=== PATIENT | female | born 1945 | race Caucasian/White ===

== ENCOUNTER 2017-09-03 12:16 | Observation (INO) | payer OTHER ==
[~2017-09-03] VITALS: Ht 152.4 cm; Wt 74.4 kg
[~2017-09-03 12:16] MED LIST: ASPIR 8181 MG PO; ATORVASTATIN CA20 MG PO; BENZONATATE100 MG PO; CLOPIDOGREL75 MG PO; DEXILANT60 MG PO; GABAPENTIN100 MG PO; HYDRALAZINE HCL10 MG PO; OMEPRAZOLE20 MG PO; OMEPRAZOLE40 MG PO; OXYBUTYNIN CHLOR5 M1 PO; VENTOLIN HFA18 GM INH
--- NOTE | 2017-09-03 14:18 | Diagnostic Imaging Report ---
EXAMINATION: CT of the lumbar spine HISTORY:Status post fall 2 days ago with back pain, difficulty walking, possible L1 fracture COMPARISON:None available TECHNIQUE: Multidetector helical axial images were obtained without contrast from L1 to S1. The images were reconstructed using bone and soft tissue algorithms and were viewed in axial, sagittal, and coronal planes. FINDINGS: Alignment:Normal lumbar lordosis. Prominent S-shaped scoliosis with dominant levoscoliosis centered at L3-L4, with right-sided compensatory curve proximal and distal to this apex. Minimal retrolistheses at L2 opacity at L3-L4, left lateral spondylolisthesis at L2-L3 and L4-L5. Vertebral bodies:Normal height and density. Chronic endplate degenerative changes mainly on the right side at L3-L4 and on the left at L2-L3, likely related to scoliosis. Paraspinal soft tissues:Diffuse calcification of the bilateral adrenal glands. Moderate atrophy of the paraspinal muscles in the lumbosacral region. Dystrophic calcification in the left posterior paraspinal muscles at L4-L5. Intervertebral disks: T12-L1: Mild disc bulge and vacuum phenomena. No stenoses. L1-L2: Mild asymmetrical left disc osteophyte. No canal or foraminal stenoses. L2-L3: Mild asymmetric to the left disc osteophyte, vacuum phenomena, bilateral facet arthropathy. Mild canal and foraminal stenoses.. L3-L4: Asymmetric to the right disc osteophyte and prominent facet arthroses. Mild spinal canal stenosis. Severe right and moderate left foraminal stenosis. L4-L5: Disc osteophyte complex formation, vacuum phenomena, bilateral osteonecrosis. Mild spinal canal and moderate right foraminal stenoses.. L5-S1: Asymmetric to the left disc osteophyte and documented, bilateral facet arthrosis. Moderate right and severe left foraminal stenosis.. Incidental findings: Irregularity of the posterior margin of the bilateral iliac bones may be related to donor site for bone grafting IMPRESSION: 1. No acute lumbar spine fractures or dislocations. 2. Chronic multilevel degenerative changes with canal and foraminal stenosis as detailed above. 3. Chronic S-shaped scoliosis and spondylolisthesis as described. 4. Incidentally noted calcified adrenal glands. Note is made that acute posttraumatic thecal sac/cauda equina, ligamentous or vascular injury cannot adequately be assessed with CT. Signed by: Dr. Madeleine Rincon M.D. on 09/03/2017 2:14 PM
[2017-09-03] MEDS ORDERED: DIAZEPAM 2 MG TAB PO ONE (15:00)
[2017-09-03] MEDS ORDERED: KETOROLAC TROMETHAMINE 60 MG/2 ML VIAL IM ONE (15:00)
[2017-09-03 19:24] LABS: ANION GAP 10.5 mmol/L (8-16); BLOOD UREA NITROGEN 21 mg/dL (7-26); BUN/CREATININE RATIO 36 (6-25); CALCIUM 9.6 mg/dL (8.4-10.2); CARBON DIOXIDE 29 mmol/L (22-29); CHLORIDE 102 mmol/L (98-107); CREATININE, SERUM 0.58 mg/dL (0.57-1.11); EST GLOMERULAR FILTRATION RATE > 60 ML/MIN (60-); GLUCOSE 123 mg/dL (74-118); POTASSIUM 3.5 mmol/L (3.5-5.1); SODIUM 138 mmol/L (136-145)
[2017-09-03] MEDS ORDERED: SODIUM CHLORIDE FLUSH 10 ML SYR INJ PRN (19:45)
[2017-09-03] MEDS ORDERED: ONDANSETRON HCL 4 MG ORAL DISINTEGRATING TAB PO PRN (19:45)
[2017-09-03 20:08] LABS: BASOPHILS % 0.2 % (0.0-1.0); EOSINOPHILS # (AUTO) 0.2 (0.0-0.4); EOSINOPHILS % 2.7 % (0.0-6.0); HEMATOCRIT 33.9 % (34.2-44.1); HEMOGLOBIN 11.3 g/dL (12.0-16.0); LYMPHOCYTES # (AUTO) 1.7 (1.0-3.2); MEAN CORPUSCULAR HGB CONC 33.3 g/dL (31-35); MEAN CORPUSCULAR VOLUME 92.9 fL (81-99); MONOCYTES # (AUTO) 0.6 (0.2-0.8); MONOCYTES % 6.9 % (4.4-11.3); NEUTROPHILS # (AUTO) 5.7 (2.1-6.9); NEUTROPHILS % 68.8 % (38.7-80.0); PLATELET COUNT 208 x10e3/uL (140-360); RED BLOOD COUNT 3.65 x10e6/uL (3.6-5.1); RED CELL DISTRIBUTION WIDTH 13.5 % (11.7-14.4)
--- OUTSIDE RECORDS SUMMARY | 2017-09-03 20:14 | XMS REPORT ---
Author Author [facility] Address Unknown Phone Unavailable Care Team Providers Care Support Director Name Role Phone HOMAR DALEY Unavailable Unavailable Problems This patient has no known problems. Allergies, Adverse Reactions, Alerts This patient has no known allergies or adverse reactions. Medications This patient has no known medications. Results Test Description Test Time Test Comments Text Results Atomic Results Result Comments CT LUMBAR SPINE WO [place] [address] Patient Name: TRENA VILLAVICENCIO MR #: [id number] : 1945 Age/Sex: 71/F Req #: [id number] Adm Physician: Ordered by: HOMAR DALEY MD Report #: [id number] Location: ER Room/Bed: Procedure: [id number] CT/CT LUMBAR SPINE WO Exam Date: 09/03/17 Exam Time: 1320 REPORT STATUS: Signed EXAMINATION: CT of the lumbar spine HISTORY:Status post fall 2 days ago with back pain, difficulty walking, possible L1 fracture COMPARISON:None available TECHNIQUE: Multidetector helical axial images were obtained without contrast from L1 to S1. The images were reconstructed using bone and soft tissue algorithms and were viewed in axial, sagittal, and coronal planes. FINDINGS : Alignment:Normal lumbar lordosis. Prominent S-shaped scoliosis with dominant levoscoliosis centered at L3-L4, with right-sided compensatory curve proximal and distal to this apex. Minimal retrolistheses at L2 opacity at L3- L4, left lateral spondylolisthesis at L2-L3 and L4-L5. Vertebral bodies :Normal height and density. Chronic endplate degenerative changes mainly on the right side at L3-L4 and on the left at L2-L3, likely related to scoliosis. Paraspinal soft tissues:Diffuse calcification of the bilateral adrenal glands. Moderate atrophy of the paraspinal muscles in the lumbosacral region. Dystrophic calcification in the left posterior paraspinal muscles at L4-L5. Intervertebral disks: T12-L1: Mild disc bulge and vacuum phenomena. No stenoses. L1-L2: Mild asymmetrical left disc osteophyte. No canal or foraminal stenoses. L2-L3: Mild asymmetric to the left disc osteophyte, vacuum phenomena, bilateral facet arthropathy. Mild canal and foraminal stenoses.. L3-L4: Asymmetric to the right disc osteophyte and prominent facet arthroses. Mild spinal canal stenosis. Severe right and moderate left foraminal stenosis. L4-L5: Disc osteophyte complex formation, vacuum phenomena, bilateral osteonecrosis. Mild spinal canal and moderate right foraminal stenoses.. L5-S1: Asymmetric to the left disc osteophyte and documented, bilateral facet arthrosis. Moderate right and severe left foraminal stenosis.. Incidental findings: Irregularity of the posterior margin of the bilateral iliac bones may be related to donor site for bone grafting IMPRESSION: 1. No acute lumbar spine fractures or dislocations. 2. Chronic multilevel degenerative changes with canal and foraminal stenosis as detailed above. 3. Chronic S- shaped scoliosis and spondylolisthesis as described. 4. Incidentally noted calcified adrenal glands. Note is made that acute posttraumatic thecal sac/cauda equina, ligamentous or vascular injury cannot adequately be assessed with CT. Signed by: Dr. Odilia Rincon M.D. on 09/03/2017 2:14 PM Dictated By: ODILIA RINCON MD 13 COPY TO: HOMAR DALEY MD
[2017-09-03] MEDS: HYDRALAZINE HCL 10 MG TAB PO SCH (21:00)
[2017-09-03 21:04] VITALS: BP 145/68
[2017-09-03 21:31] VITALS: BP 145/68
[2017-09-03] MEDS: MORPHINE SULFATE 2 MG/ML SYR IV PRN (21:48)
[2017-09-03] MEDS ORDERED: ALBUTEROL SULFATE HFA 8GM INHALATION AEROSOL INH SCH (22:00)
[2017-09-03] MEDS ORDERED: ACETAMINOPHEN 325 MG TAB PO PRN (22:00)
[2017-09-03] MEDS: ATORVASTATIN 20 MG TAB PO SCH (22:26)
[2017-09-03] MEDS: GABAPENTIN 100 MG CAP PO SCH (22:26)
[2017-09-04] VITALS (8 sets, daily range): BP systolic 96–143; BP diastolic 55–64
[2017-09-04] MEDS: HYDRALAZINE HCL 10 MG TAB PO SCH ×3 (08:36→21:22)
[2017-09-04] MEDS: CLOPIDOGREL BISULFATE 75 MG TAB PO SCH (08:36)
[2017-09-04] MEDS: GABAPENTIN 100 MG CAP PO SCH ×3 (08:36→21:22)
[2017-09-04] MEDS: PANTOPRAZOLE SOD 40 MG TABEC PO SCH (08:36)
[2017-09-04] MEDS: ASPIRIN 81 MG CHEW TAB PO SCH (08:36)
[2017-09-04] MEDS: OXYBUTYNIN CHLORIDE XL 5 MG TAB PO SCH (08:36)
[2017-09-04] MEDS: MORPHINE SULFATE 2 MG/ML SYR IV PRN ×2 (08:37→14:47)
[2017-09-04] MEDS ORDERED: PANTOPRAZOLE SOD 40 MG TABEC PO SCH (09:00)
[2017-09-04] MEDS ORDERED: TRAMADOL/APAP 37.5MG-325MG TAB PO PRN (11:00)
[2017-09-04] MEDS: MELOXICAM 7.5 MG TAB PO SCH ×2 (11:18→16:16)
[2017-09-04] MEDS: LIDOCAINE 5% PATCH TP SCH (11:18)
[2017-09-04] MEDS ORDERED: PREDNISONE 20 MG TAB PO ONE (12:45)
[2017-09-04] MEDS ORDERED: ATORVASTATIN 20 MG TAB PO SCH (21:00)
[2017-09-04] MEDS: ATORVASTATIN 20 MG TAB PO SCH (21:22)
[2017-09-05] VITALS: BP 136/63
--- NOTE | 2017-09-05 00:15 | Discharge Summary ---
PCP: Dr. Kevin Ye FINAL DIAGNOSES 1. Lower back intractable pain, much improved. 2. Ambulatory dysfunction, much better. A 71-year-old female, apparently fell and hit her lower back area. Fall was accidental. Patient was having some pain and difficulty movement and acute lower back strain. Patient did receive some pain medications. She is doing much better. Discussed with the patient on treatment progress. She will take Mobic 7.5 mg twice a day with meals, Lidoderm patch to the lower back area and Ultracet as needed for pain. Patient to follow up with Dr. Kevin Ye tomorrow for home health recommendation. Patient is stable, discharged home. Resume home medication. No obvious acute injury. Muscular strain reproducible with movement and palpation to the lower back and upper back scapular area. Job#: [id number] CQ
[2017-09-05] MEDS: MORPHINE SULFATE 2 MG/ML SYR IV PRN ×2 (02:09→10:04)
[2017-09-05 04:16] VITALS: BP 100/62
[2017-09-05 08:09] VITALS: BP 155/67
[2017-09-05] MEDS ORDERED: TRIAMCINOLONE ACET 40 MG/ML VIAL IM ONE (09:15)
[2017-09-05] MEDS: GABAPENTIN 100 MG CAP PO SCH ×2 (10:03→15:50)
[2017-09-05] MEDS: CLOPIDOGREL BISULFATE 75 MG TAB PO SCH (10:03)
[2017-09-05] MEDS: ASPIRIN 81 MG CHEW TAB PO SCH (10:04)
[2017-09-05] MEDS: MELOXICAM 7.5 MG TAB PO SCH ×2 (10:04→15:51)
[2017-09-05] MEDS: OXYBUTYNIN CHLORIDE XL 5 MG TAB PO SCH (10:04)
[2017-09-05] MEDS: HYDRALAZINE HCL 10 MG TAB PO SCH ×2 (10:04→15:00)
[2017-09-05] MEDS: LIDOCAINE 5% PATCH TP SCH (10:04)
[2017-09-05] MEDS: PANTOPRAZOLE SOD 40 MG TABEC PO SCH (10:04)
[2017-09-05 12:17] VITALS: BP 143/63
[2017-09-05 12:40] VITALS: BP 143/63
[2017-09-05] MEDS ORDERED: ULTRACET TABLE1 EACH PO (14:43)
== END 2017-09-05 16:30 | disposition home or self-care (01) ==
LOC: ER 12:16 → ERHOLD 19:36 → MED/SURG 20:18
PROVIDERS: ADMIT Internal Medicine; ATTEND Internal Medicine
DX: S39.012A Strain of muscle, fascia and tendon of lower back, initial encounter (principal); W01.0XXA Fall on same level from slipping, tripping and stumbling without subsequent striking against object, initial encounter; Y93.89 Activity, other specified; Z88.0 Allergy status to penicillin; Z91.048 Other nonmedicinal substance allergy status
CPT/HCPCS: 36415; 72131; 80048; 85025; 97161; 97530; 99284; G0378 ×3; J1885; J2270 ×3; J3301

== ENCOUNTER → 2019-01-03 | Outpatient (CLI) | payer MEDICARE ==
[~2019-01-03] MED LIST changes: +REGADENOSON 0.4 MG/5 ML SYR IV ONE; +ULTRACET TABLE1 EACH PO
--- NOTE | 2019-01-04 10:58 | Myoview Stress Test ---
DATE OF STUDY: 01/03/2019 09:23:00 Stress Test - Treadmill ONLY PROCEDURE PERFORMED: Lexiscan nuclear stress test. INDICATION: Chest pain. TECHNIQUE: The patient was given 11 mCi of Myoview. Resting images were obtained in the horizontal long axis, vertical long axis, and short axis. The patient was then hooked up to the EKG machine and given Lexiscan injection over 15 seconds. During Lexiscan infusion, the patient had no chest pain and no EKG changes. Stress images were obtained 30 minutes after completion of Lexiscan infusion. Stress images were obtained using 33 mCi of Myoview. Stress images were obtained in the horizontal long axis, vertical long axis, and short axis. RESULTS: 1. The resting EKG demonstrated normal sinus rhythm with nonspecific ST and T-wave changes. 2. There were no symptoms during Lexiscan infusion and no EKG changes. 3. The patient had normal perfusion to all segments of the myocardium in both stress and rest. 4. The patient has normal left ventricular size and function with an ejection fraction of 69%. CONCLUSION: Normal Lexiscan nuclear stress test with no evidence of ischemia. Young Wyman MD [facility] /[id number] cc: Young Wyman MD
== END ==
LOC: NM 09:10
PROVIDERS: ATTEND Internal Medicine Cardiovascular Disease
DX: R07.2 Precordial pain (principal)
CPT/HCPCS: 78452; 93017; A9502; J2785

== ENCOUNTER 2019-02-17 18:03 | Emergency (ER) | payer MEDICARE ==
[~2019-02-17] VITALS: Ht 152.4 cm; Wt 74.4 kg
[~2019-02-17 18:03] MED LIST changes: -REGADENOSON 0.4 MG/5 ML SYR IV ONE
[2019-02-17] MEDS ORDERED: TETANUS/DIPHTHERIA TOX ADULT 0.5 ML SYR IM ONE (18:15)
--- NOTE | 2019-02-17 18:49 | Diagnostic Imaging Report ---
RIGHT HAND X-RAY - 3 VIEWS HISTORY: ^r/o fx ^[id number] ^[id number] COMPARISON: None available. FINDINGS: Bones: No acute displaced fracture. Chronic cortical disruption of the triquetrium, likely due to chronic degenerative change. Diffuse bone demineralization. Joints: Moderate degenerative changes throughout the right hand. Soft tissues: The soft tissues appear unremarkable. IMPRESSION: No acute radiographic abnormality. Signed by: Dr. Anat Dixon M.D. on 02/17/2019 6:45 PM
--- NOTE | 2019-02-17 19:01 | Diagnostic Imaging Report ---
History:Fall, head and neck pain Comparison studies:CT head . MRI brain 10/14/2016 Technique: Axial images were obtained from the skull base to the vertex. Coronal and sagittal images reconstructed from the axial data. Intravenous contrast: None Dose modulation, iterative reconstruction, and/or weight based adjustment of the mA/kV was utilized to reduce the radiation dose to as low as reasonably achievable. Findings: Scalp/skull: No acute abnormalities. Posterior occipital wires at the craniocervical junction. Extra-axial spaces: No masses. No fluid collections. Brain sulci: Mildly prominent. Ventricles: Mild compensatory dilatation. No hydrocephalus. Parenchyma: Scattered hypodensities in the supratentorial white matter are small vessel ischemic changes. 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 No masses, hemorrhage, acute or chronic cortical vascular insults. Sellar/suprasellar region: No abnormalities. Craniocervical junction: Patent foramen magnum. No Chiari one malformation. Incidental findings: Atherosclerotic calcifications in the carotid siphons . Impression: No acute abnormalities. Chronic findings: 1. Mild generalized volume loss. 2. Moderate supratentorial white matter small vessel ischemic changes. Signed by: DR Ignacio Granger M.D. on 02/17/2019 6:57 PM
--- NOTE | 2019-02-17 19:02 | NUR ---
3 stitches placed by ish clancy np
--- NOTE | 2019-02-17 19:09 | Diagnostic Imaging Report ---
History: Fall, head and neck pain Comparison studies: None Technique: Axial images were obtained through the cervical region.. Coronal and sagittal images reconstructed from the axial data.. Intravenous contrast: None Dose modulation, iterative reconstruction, and/or weight based adjustment of the mA/kV was utilized to reduce the radiation dose to as low as reasonably achievable. Findings: Fractures: None. Soft tissues: No gross abnormalities. Atlantoaxial articulation: Intact. Alignment: Reversal of the normal lordosis. No scoliosis. Cervicomedullary junction: Posterior fusion of the craniocervical junction. The foramen magnum is patent. Anterior fusion with plate and screws at C3-4 without complication. Posterior decompression laminectomy changes from C3 through C6. Vertebrae: No infection or neoplasm. Degenerative changes: Fused C3-C4 intervertebral space. Decreased intervertebral space from C4 through C7. Degenerative foraminal narrowing, moderate bilateral at C3-4, severe bilateral at C4-5, moderate right and severe left at C5-6, moderate bilateral at C6-7 and mild bilateral at C7-T1. Prominent inferiorly projecting osteophytes at the mid cervical spine. Moderate degenerative canal narrowing at C3-4. Degenerative changes of the bilateral TMJs more prominent on the left. IMPRESSION: 1. No acute cervical spine abnormalities. Degenerative and surgical changes as described above. 2. Cannot exclude ligament, spinal cord and or vascular abnormalities on the basis of this examination. Signed by: DR Ignacio Granger M.D. on 02/17/2019 7:06 PM
== END 2019-02-17 19:50 | disposition home or self-care (01) ==
LOC: ER 18:03
DX: S60.221A Contusion of right hand, initial encounter (principal); S61.214A Laceration without foreign body of right ring finger without damage to nail, initial encounter; S60.041A Contusion of right ring finger without damage to nail, initial encounter; W49.04XA Ring or other jewelry causing external constriction, initial encounter; I10 Essential (primary) hypertension; E78.5 Hyperlipidemia, unspecified; K21.9 Gastro-esophageal reflux disease without esophagitis
CPT/HCPCS: 70450; 72125; 90471; 90714; 99284

== ENCOUNTER 2020-09-29 11:49 | Emergency (ER) | payer MEDICARE ==
[~2020-09-29] VITALS: Ht 152.4 cm; Wt 74.4 kg
[2020-09-29 14:29] LABS: BASOPHILS % 0.3 % (0.0-1.0); EOSINOPHILS # (AUTO) 0.1 (0.0-0.4); EOSINOPHILS % 1.6 % (0.0-6.0); HEMATOCRIT 37.3 % (34.2-44.1); HEMOGLOBIN 11.9 g/dL (12.0-16.0); LYMPHOCYTES # (AUTO) 1.4 (1.0-3.2); LYMPHOCYTES % 15.3 % (18.0-39.1); MEAN CORPUSCULAR HEMOGLOBIN 29.8 pg (28-32); MEAN CORPUSCULAR HGB CONC 31.9 g/dL (31-35); MEAN CORPUSCULAR VOLUME 93.3 fL (81-99); MONOCYTES % 10.9 % (4.4-11.3); NEUTROPHILS # (AUTO) 6.5 (2.1-6.9); NEUTROPHILS % 71.6 % (38.7-80.0); PLATELET COUNT 254 x10e3/uL (140-360); RED CELL DISTRIBUTION WIDTH 12.8 % (11.7-14.4)
[2020-09-29 14:36] LABS: CLARITY,URINE CLEAR (CLEAR); COLOR,URINE YELLOW (YELLOW); KETONES,URINE TRACE (NEGATIVE); LEUKOCYTE ESTERASE ,URINE NEGATIVE (NEGATIVE); NITRITE,URINE NEGATIVE (NEGATIVE); PROTEIN,URINE DIPSTICK NEGATIVE (NEGATIVE); URINE UROBILINOGEN 0.2 mg/dL (0.2 - 1)
[2020-09-29 14:41] LABS: INR 0.84; PROTHROMBIN TIME 12.1 seconds (11.9-14.5)
[2020-09-29 14:42] LABS: PARTIAL THROMBOPLASTIN TIME 25.8 seconds (23.8-35.5)
[2020-09-29 14:49] LABS: ALANINE AMINOTRANSFERASE 17 IU/L (0-55); ALBUMIN 3.4 g/dL (3.5-5.0); ALKALINE PHOSPHATASE 108 IU/L (40-150); ANION GAP 13.9 mmol/L (8-16); BLOOD UREA NITROGEN 18 mg/dL (7-26); BUN/CREATININE RATIO 27 (6-25); CALCIUM 9.8 mg/dL (8.4-10.2); CARBON DIOXIDE 31 mmol/L (22-29); CHLORIDE 99 mmol/L (98-107); CREATINE KINASE 37 IU/L (29-168); CREATININE, SERUM 0.66 mg/dL (0.57-1.11); EST GLOMERULAR FILTRATION RATE > 60 ML/MIN (60-); GLUCOSE 91 mg/dL (74-118); POTASSIUM 3.9 mmol/L (3.5-5.1); SODIUM 140 mmol/L (136-145)
[2020-09-29 14:51] LABS: BACTERIA,URINE RARE /HPF; EPITHELIAL CELLS,URINE FEW /LPF; RBC,URINE 0-5 /HPF (0-5)
[2020-09-29 17:54] VITALS: BP 162/69
== END 2020-09-29 18:00 | disposition home or self-care (01) ==
LOC: ER 13:07
DX: L03.116 Cellulitis of left lower limb (principal); L03.115 Cellulitis of right lower limb; W18.11XA Fall from or off toilet without subsequent striking against object, initial encounter; Y92.002 Bathroom of unspecified non-institutional (private) residence as the place of occurrence of the external cause; I10 Essential (primary) hypertension; E78.5 Hyperlipidemia, unspecified; K21.9 Gastro-esophageal reflux disease without esophagitis; G62.9 Polyneuropathy, unspecified; Z20.822 Contact with and (suspected) exposure to COVID-19
CPT/HCPCS: 36415; 51700; 70450; 71045; 72125; 72170; 73562; 73590; 73610; 80053; 81001; 82550; 82553; 83605; 83735; 83880; 84484; 85025; 85610; 85730; 87040; 87086; 93005; 93970; 99284; U0002

== ENCOUNTER 2020-10-03 17:29 | Inpatient (IN) | payer MEDICARE ==
[~2020-10-03] VITALS: Ht 152.4 cm; Wt 89.4 kg
[2020-10-03] MEDS ORDERED: TRAMADOL HCL 50 MG TAB PO ONE (18:00)
[2020-10-03] MEDS ORDERED: TRAMADOL HCL 50 MG TAB ONE (18:10)
[2020-10-03 20:07] LABS: BASOPHILS % 0.2 % (0.0-1.0); EOSINOPHILS # (AUTO) 0.1 (0.0-0.4); EOSINOPHILS % 1.1 % (0.0-6.0); HEMATOCRIT 35.7 % (34.2-44.1); HEMOGLOBIN 11.3 g/dL (12.0-16.0); LYMPHOCYTES # (AUTO) 1.2 (1.0-3.2); LYMPHOCYTES % 11.6 % (18.0-39.1); MEAN CORPUSCULAR HEMOGLOBIN 29.6 pg (28-32); MEAN CORPUSCULAR HGB CONC 31.7 g/dL (31-35); MEAN CORPUSCULAR VOLUME 93.5 fL (81-99); MONOCYTES # (AUTO) 1.1 (0.2-0.8); MONOCYTES % 10.3 % (4.4-11.3); NEUTROPHILS # (AUTO) 7.9 (2.1-6.9); NEUTROPHILS % 76.4 % (38.7-80.0); PLATELET COUNT 267 x10e3/uL (140-360); RED BLOOD COUNT 3.82 x10e6/uL (3.6-5.1); RED CELL DISTRIBUTION WIDTH 13.1 % (11.7-14.4)
[2020-10-03 20:25] LABS: ANION GAP 13.8 mmol/L (8-16); BLOOD UREA NITROGEN 31 mg/dL (7-26); BUN/CREATININE RATIO 42 (6-25); CALCIUM 9.6 mg/dL (8.4-10.2); CARBON DIOXIDE 29 mmol/L (22-29); CHLORIDE 99 mmol/L (98-107); CREATININE, SERUM 0.74 mg/dL (0.57-1.11); EST GLOMERULAR FILTRATION RATE > 60 ML/MIN (60-); GLUCOSE 91 mg/dL (74-118); POTASSIUM 3.8 mmol/L (3.5-5.1); SODIUM 138 mmol/L (136-145)
[2020-10-03 20:44] LABS: CREATINE KINASE MB 2.5 ng/mL (0-5.0)
[2020-10-03] MEDS: ONDANSETRON HCL INJ 2MG/ML 2ML 2 MG/ML VIAL IV PRN (22:05)
[2020-10-03] MEDS: MORPHINE SULFATE INJ 4 MG/ML INJ 1ML IV PRN (22:05)
[2020-10-04] MEDS: MORPHINE SULFATE INJ 4 MG/ML INJ 1ML IV PRN ×5 (03:17→22:10)
[2020-10-04] MEDS: ONDANSETRON HCL INJ 2MG/ML 2ML 2 MG/ML VIAL IV PRN ×4 (03:18→22:10)
[2020-10-04 05:34] LABS: BASOPHILS % 0.3 % (0.0-1.0); EOSINOPHILS # (AUTO) 0.2 (0.0-0.4); EOSINOPHILS % 1.9 % (0.0-6.0); HEMATOCRIT 36.2 % (34.2-44.1); HEMOGLOBIN 11.4 g/dL (12.0-16.0); LYMPHOCYTES % 12.9 % (18.0-39.1); MEAN CORPUSCULAR HEMOGLOBIN 29.6 pg (28-32); MEAN CORPUSCULAR HGB CONC 31.5 g/dL (31-35); MONOCYTES % 12.1 % (4.4-11.3); NEUTROPHILS # (AUTO) 5.8 (2.1-6.9); NEUTROPHILS % 72.2 % (38.7-80.0); PLATELET COUNT 263 x10e3/uL (140-360); RED BLOOD COUNT 3.85 x10e6/uL (3.6-5.1); RED CELL DISTRIBUTION WIDTH 13.1 % (11.7-14.4)
[2020-10-04 05:59] LABS: ANION GAP 14.8 mmol/L (8-16); BLOOD UREA NITROGEN 26 mg/dL (7-26); BUN/CREATININE RATIO 39 (6-25); CALCIUM 9.7 mg/dL (8.4-10.2); CARBON DIOXIDE 30 mmol/L (22-29); CHLORIDE 98 mmol/L (98-107); CREATININE, SERUM 0.67 mg/dL (0.57-1.11); EST GLOMERULAR FILTRATION RATE > 60 ML/MIN (60-); GLUCOSE 82 mg/dL (74-118); POTASSIUM 3.8 mmol/L (3.5-5.1); SODIUM 139 mmol/L (136-145)
[2020-10-04 07:48] VITALS: BP 137/45
[2020-10-04 08:50] VITALS: BP 137/45
[2020-10-04] MEDS ORDERED: ALBUTEROL SULFATE HFA 8GM INHALATION AEROSOL INH PRN (10:45)
[2020-10-04 11:45] VITALS: BP 126/59
[2020-10-04] MEDS: PANTOPRAZOLE SOD 40 MG TABEC PO SCH (13:53)
[2020-10-04] MEDS: SENNA-S TABLET PO SCH ×2 (13:53→16:52)
[2020-10-04 15:55] VITALS: BP 135/54
[2020-10-04] MEDS: GABAPENTIN 100 MG CAP PO SCH ×2 (16:51→20:53)
[2020-10-04] MEDS: HYDRALAZINE HCL 10 MG TAB PO SCH ×2 (16:51→20:52)
[2020-10-04] MEDS: ENOXAPARIN SOD INJ 40 MG/0.4 ML SYR SC SCH (16:53)
[2020-10-04 20:45] VITALS: BP 130/68
[2020-10-04] MEDS: ATORVASTATIN 40 MG TAB PO SCH (20:52)
[2020-10-05] VITALS (9 sets, daily range): BP systolic 108–130; BP diastolic 62–80
[2020-10-05] MEDS: HYDRALAZINE HCL 10 MG TAB PO SCH (09:08)
[2020-10-05] MEDS: PANTOPRAZOLE SOD 40 MG TABEC PO SCH (09:08)
[2020-10-05] MEDS: ASPIRIN 81 MG CHEW TAB PO SCH (09:09)
[2020-10-05] MEDS: GABAPENTIN 100 MG CAP PO SCH ×3 (09:09→20:33)
[2020-10-05] MEDS: OXYBUTYNIN CHLORIDE XL 5 MG TAB PO SCH (09:09)
[2020-10-05] MEDS: SENNA-S TABLET PO SCH ×2 (09:10→16:39)
[2020-10-05] MEDS: CLOPIDOGREL BISULFATE 75 MG TAB PO SCH (09:10)
[2020-10-05] MEDS: ONDANSETRON HCL INJ 2MG/ML 2ML 2 MG/ML VIAL IV PRN ×2 (09:12→15:16)
[2020-10-05] MEDS: MORPHINE SULFATE INJ 4 MG/ML INJ 1ML IV PRN (09:14)
[2020-10-05] MEDS ORDERED: MORPHINE SULFATE INJ 2 MG/ML SYR ONE (09:14)
[2020-10-05] MEDS: CELECOXIB 100 MG CAP PO SCH ×2 (10:50→16:39)
[2020-10-05] MEDS: TRAMADOL/APAP 37.5MG-325MG TAB PO PRN ×2 (15:14→19:55)
[2020-10-05] MEDS: ENOXAPARIN SOD INJ 40 MG/0.4 ML SYR SC SCH (16:39)
[2020-10-05] MEDS: ATORVASTATIN 40 MG TAB PO SCH (20:33)
[2020-10-06] VITALS (8 sets, daily range): BP systolic 113–147; BP diastolic 61–80
[2020-10-06] MEDS: TRAMADOL/APAP 37.5MG-325MG TAB PO PRN ×5 (05:12→22:36)
[2020-10-06] MEDS: OXYBUTYNIN CHLORIDE XL 5 MG TAB PO SCH (09:07)
[2020-10-06] MEDS: ASPIRIN 81 MG CHEW TAB PO SCH (09:07)
[2020-10-06] MEDS: CELECOXIB 100 MG CAP PO SCH ×2 (09:07→16:30)
[2020-10-06] MEDS: PANTOPRAZOLE SOD 40 MG TABEC PO SCH (09:07)
[2020-10-06] MEDS: GABAPENTIN 100 MG CAP PO SCH ×3 (09:08→20:55)
[2020-10-06] MEDS: CLOPIDOGREL BISULFATE 75 MG TAB PO SCH (09:08)
[2020-10-06] MEDS: SENNA-S TABLET PO SCH ×2 (09:08→16:31)
[2020-10-06] MEDS: ENOXAPARIN SOD INJ 40 MG/0.4 ML SYR SC SCH (16:31)
[2020-10-06] MEDS: ATORVASTATIN 40 MG TAB PO SCH (20:55)
[2020-10-07] VITALS (8 sets, daily range): BP systolic 131–170; BP diastolic 63–85
[2020-10-07] MEDS: CELECOXIB 100 MG CAP PO SCH ×2 (07:39→16:40)
[2020-10-07] MEDS: PANTOPRAZOLE SOD 40 MG TABEC PO SCH (07:39)
[2020-10-07] MEDS: TRAMADOL/APAP 37.5MG-325MG TAB PO PRN ×3 (07:45→20:57)
[2020-10-07] MEDS: OXYBUTYNIN CHLORIDE XL 5 MG TAB PO SCH (09:16)
[2020-10-07] MEDS: SENNA-S TABLET PO SCH ×2 (09:16→16:40)
[2020-10-07] MEDS: CLOPIDOGREL BISULFATE 75 MG TAB PO SCH (09:16)
[2020-10-07] MEDS: GABAPENTIN 100 MG CAP PO SCH ×3 (09:16→20:57)
[2020-10-07] MEDS: ASPIRIN 81 MG CHEW TAB PO SCH (09:16)
[2020-10-07] MEDS: ENOXAPARIN SOD INJ 40 MG/0.4 ML SYR SC SCH (16:40)
[2020-10-07] MEDS: BALSAM PERU/CASTOR OIL 60 GM OINT...G. TP SCH (17:11)
[2020-10-07] MEDS: ATORVASTATIN 40 MG TAB PO SCH (20:57)
[2020-10-08] VITALS (10 sets, daily range): BP systolic 127–177; BP diastolic 67–87
[2020-10-08] MEDS: TRAMADOL/APAP 37.5MG-325MG TAB PO PRN ×3 (02:30→19:52)
[2020-10-08] MEDS: BALSAM PERU/CASTOR OIL 60 GM OINT...G. TP SCH (06:20)
[2020-10-08] MEDS: PANTOPRAZOLE SOD 40 MG TABEC PO SCH (07:30)
[2020-10-08] MEDS: CELECOXIB 100 MG CAP PO SCH ×2 (08:00→17:00)
[2020-10-08] MEDS: SENNA-S TABLET PO SCH ×2 (09:00→17:00)
[2020-10-08] MEDS: GABAPENTIN 100 MG CAP PO SCH ×3 (09:00→21:14)
[2020-10-08] MEDS: OXYBUTYNIN CHLORIDE XL 5 MG TAB PO SCH (09:00)
[2020-10-08] MEDS: ASPIRIN 81 MG CHEW TAB PO SCH (09:00)
[2020-10-08] MEDS: CLOPIDOGREL BISULFATE 75 MG TAB PO SCH (09:00)
[2020-10-08] MEDS: ENOXAPARIN SOD INJ 40 MG/0.4 ML SYR SC SCH (17:00)
[2020-10-08] MEDS ORDERED: BALSAM PERU/CASTOR OIL 60 GM OINT...G. TP SCH (21:00)
[2020-10-08] MEDS: ATORVASTATIN 40 MG TAB PO SCH (21:14)
[2020-10-09] MEDS: TRAMADOL/APAP 37.5MG-325MG TAB PO PRN ×2 (02:50→09:00)
[2020-10-09 05:09] VITALS: BP 127/90
[2020-10-09] MEDS ORDERED: BALSAM PERU/CASTOR OIL 60 GM OINT...G. TP SCH (06:00)
[2020-10-09 07:27] VITALS: BP 149/80
[2020-10-09] MEDS: PANTOPRAZOLE SOD 40 MG TABEC PO SCH (07:30)
[2020-10-09] MEDS: CELECOXIB 100 MG CAP PO SCH (08:00)
[2020-10-09 08:47] VITALS: BP 149/80
[2020-10-09] MEDS: SENNA-S TABLET PO SCH (09:00)
[2020-10-09] MEDS: GABAPENTIN 100 MG CAP PO SCH (09:00)
[2020-10-09] MEDS: ASPIRIN 81 MG CHEW TAB PO SCH (09:00)
[2020-10-09] MEDS: CLOPIDOGREL BISULFATE 75 MG TAB PO SCH (09:00)
[2020-10-09] MEDS: OXYBUTYNIN CHLORIDE XL 5 MG TAB PO SCH (09:00)
[2020-10-09 11:22] VITALS: BP 143/81
== END 2020-10-09 14:10 | DRG 556 ==
LOC: ER 18:35 → ERHOLD 21:43 → MED/SURG 10-04 07:30
PROVIDERS: ADMIT Internal Medicine; ATTEND Internal Medicine
DX: R26.2 Difficulty in walking, not elsewhere classified (principal); M25.551 Pain in right hip; L89.152 Pressure ulcer of sacral region, stage 2; E66.01 Morbid (severe) obesity due to excess calories; S70.12XA Contusion of left thigh, initial encounter; W19.XXXA Unspecified fall, initial encounter; Z91.81 History of falling; Z68.38 Body mass index [BMI] 38.0-38.9, adult; Z20.822 Contact with and (suspected) exposure to COVID-19
CPT/HCPCS: 36415; 70450; 72125; 73522; 80048; 82550; 82553; 85025; 94660; 97139; 99251; 99284; J1650; J2270; J2405; U0002

== ENCOUNTER 2020-11-24 16:58 | Inpatient (IN) | payer MEDICARE ==
[~2020-11-24] VITALS: Ht 167.6 cm; Wt 89.4 kg
[2020-11-24] MEDS ORDERED: ONDANSETRON HCL INJ 2MG/ML 2ML 2 MG/ML VIAL IV STA (17:13)
[2020-11-24] MEDS ORDERED: SODIUM CHLORIDE 0.9% 1000ML 1,000 ML IV ONE ×3 (18:00→18:15)
[2020-11-24 18:20] LABS: BASOPHILS # (AUTO) 0.1 (0.0-0.1); BASOPHILS % 0.4 % (0.0-1.0); EOSINOPHILS # (AUTO) 0.2 (0.0-0.4); EOSINOPHILS % 1.5 % (0.0-6.0); HEMATOCRIT 25.6 % (34.2-44.1); LYMPHOCYTES # (AUTO) 1.8 (1.0-3.2); LYMPHOCYTES % 14.7 % (18.0-39.1); MEAN CORPUSCULAR HGB CONC 31.3 g/dL (31-35); MEAN CORPUSCULAR VOLUME 92.8 fL (81-99); MONOCYTES # (AUTO) 0.9 (0.2-0.8); MONOCYTES % 7.1 % (4.4-11.3); NEUTROPHILS # (AUTO) 9.2 (2.1-6.9); NEUTROPHILS % 75.5 % (38.7-80.0); PLATELET COUNT 265 x10e3/uL (140-360); RED BLOOD COUNT 2.76 x10e6/uL (3.6-5.1)
[2020-11-24 18:23] LABS: CLARITY,URINE SL CLOUDY (CLEAR); COLOR,URINE YELLOW (YELLOW); LEUKOCYTE ESTERASE ,URINE MODERATE (NEGATIVE); NITRITE,URINE NEGATIVE (NEGATIVE); PROTEIN,URINE DIPSTICK NEGATIVE (NEGATIVE)
[2020-11-24 18:24] LABS: KETONES,URINE NEGATIVE (NEGATIVE); URINE UROBILINOGEN 0.2 mg/dL (0.2 - 1)
[2020-11-24 18:28] LABS: INR 0.97; PROTHROMBIN TIME 13.5 seconds (11.9-14.5)
[2020-11-24 18:37] LABS: ALBUMIN 2.6 g/dL (3.5-5.0); ALBUMIN/GLOBULIN RATIO 0.9 (0.8-2.0); ANION GAP 11.5 mmol/L (8-16); BACTERIA,URINE MANY /HPF; CALCIUM 8.7 mg/dL (8.4-10.2); CREATININE, SERUM 1.11 mg/dL (0.57-1.11); EPITHELIAL CELLS,URINE MODERATE /LPF; POTASSIUM 3.5 mmol/L (3.5-5.1)
[2020-11-24 18:38] LABS: AMYLASE 40 U/L (25-125); LIPASE 16 U/L (8-78)
[2020-11-24] MEDS ORDERED: CEFEPIME 1 GM in SODIUM CHLORIDE 0.9% 50ML 50 ML IV ONE (18:45)
[2020-11-24] MEDS ORDERED: SODIUM CHLORIDE 0.9% 250ML 250 ML ONE (21:10)
[2020-11-25] MEDS ORDERED: OCTREOTIDE ACETATE 500 MCG in SODIUM CHLORIDE 0.9% 500ML 1 ML IV SCH (01:45)
[2020-11-25] MEDS ORDERED: SODIUM CHLORIDE 0.9% 1000ML 1,000 ML IV SCH (01:45)
[2020-11-25] MEDS ORDERED: OCTREOTIDE ACETATE 0.05 MG/ML AMP IV ONE (01:45)
[2020-11-25] MEDS ORDERED: SODIUM CHLORIDE 0.9% 250ML 250 ML ONE (01:52)
[2020-11-25] MEDS: NOREPINEPHRINE 8 MG/D5W 250 ML 250 ML IV SCH (02:15)
[2020-11-25] MEDS: Pantoprazole IV 80 MG in SODIUM CHLORIDE 0.9% 100 ML IV SCH ×2 (03:48→14:08)
[2020-11-25] MEDS: OCTREOTIDE ACETATE 500 MCG in SODIUM CHLORIDE 0.9% 250ML 249 ML IV SCH ×2 (03:48→16:48)
[2020-11-25] MEDS ORDERED: ALBUTEROL SULFATE HFA 8GM INHALATION AEROSOL INH PRN (05:45)
[2020-11-25] MEDS ORDERED: LACTATED RINGER'S 1,000 ML INJ ONE (05:45)
[2020-11-25] MEDS ORDERED: ZOLPIDEM TARTRATE 5 MG TAB PO PRN (05:45)
[2020-11-25 06:04] LABS: BASOPHILS % 0.3 % (0.0-1.0); EOSINOPHILS # (AUTO) 0.8 (0.0-0.4); EOSINOPHILS % 7.2 % (0.0-6.0); HEMATOCRIT 31.3 % (34.2-44.1); HEMOGLOBIN 10.1 g/dL (12.0-16.0); LYMPHOCYTES # (AUTO) 2.1 (1.0-3.2); LYMPHOCYTES % 18.2 % (18.0-39.1); MEAN CORPUSCULAR HEMOGLOBIN 28.9 pg (28-32); MEAN CORPUSCULAR HGB CONC 32.3 g/dL (31-35); MEAN CORPUSCULAR VOLUME 89.4 fL (81-99); MONOCYTES # (AUTO) 0.9 (0.2-0.8); MONOCYTES % 7.5 % (4.4-11.3); NEUTROPHILS # (AUTO) 7.6 (2.1-6.9); NEUTROPHILS % 66.1 % (38.7-80.0); PLATELET COUNT 248 x10e3/uL (140-360); RED CELL DISTRIBUTION WIDTH 13.8 % (11.7-14.4)
[2020-11-25 06:22] LABS: ALBUMIN 2.8 g/dL (3.5-5.0); ANION GAP 10.1 mmol/L (8-16); CREATININE, SERUM 0.73 mg/dL (0.57-1.11); POTASSIUM 3.1 mmol/L (3.5-5.1)
[2020-11-25 07:04] LABS: INR 0.95; PROTHROMBIN TIME 13.3 seconds (11.9-14.5)
[2020-11-25 07:05] LABS: PARTIAL THROMBOPLASTIN TIME 26.2 seconds (23.8-35.5)
[2020-11-25] MEDS: OXYBUTYNIN CHLORIDE XL 5 MG TAB PO SCH (09:00)
[2020-11-25] MEDS: ONDANSETRON HCL INJ 2MG/ML 2ML 2 MG/ML VIAL IV PRN ×2 (09:04→22:24)
[2020-11-25 14:12] LABS: HEMATOCRIT 34.6 % (34.2-44.1); HEMOGLOBIN 10.9 g/dL (12.0-16.0)
[2020-11-25] MEDS: TRAMADOL/APAP 37.5MG-325MG TAB PO PRN ×2 (16:48→23:55)
[2020-11-25 19:03] LABS: HEMATOCRIT 32.2 % (34.2-44.1); HEMOGLOBIN 10.1 g/dL (12.0-16.0)
[2020-11-25] MEDS: ATORVASTATIN 40 MG TAB PO SCH (21:00)
[2020-11-26] VITALS (7 sets, daily range): BP systolic 131–150; BP diastolic 60–68
[2020-11-26 01:56] LABS: HEMATOCRIT 28.3 % (34.2-44.1); HEMOGLOBIN 9.1 g/dL (12.0-16.0)
[2020-11-26] MEDS: NOREPINEPHRINE 8 MG/D5W 250 ML 250 ML IV SCH (02:15)
[2020-11-26] MEDS: OCTREOTIDE ACETATE 500 MCG in SODIUM CHLORIDE 0.9% 250ML 249 ML IV SCH ×3 (03:23→22:00)
[2020-11-26] MEDS: Pantoprazole IV 80 MG in SODIUM CHLORIDE 0.9% 100 ML IV SCH ×3 (03:23→16:50)
[2020-11-26] MEDS: TRAMADOL/APAP 37.5MG-325MG TAB PO PRN (03:23)
[2020-11-26] MEDS: ONDANSETRON HCL INJ 2MG/ML 2ML 2 MG/ML VIAL IV PRN (05:35)
[2020-11-26 07:04] LABS: ALBUMIN 2.5 g/dL (3.5-5.0); ALBUMIN/GLOBULIN RATIO 0.9 (0.8-2.0); ANION GAP 10.6 mmol/L (8-16); CREATININE, SERUM 0.62 mg/dL (0.57-1.11); POTASSIUM 3.6 mmol/L (3.5-5.1)
[2020-11-26 07:35] LABS: HEMATOCRIT 28.5 % (34.2-44.1)
[2020-11-26] MEDS: OXYBUTYNIN CHLORIDE XL 5 MG TAB PO SCH (07:38)
[2020-11-26] MEDS: BALSAM PERU/CASTOR OIL 60 GM OINT...G. TP SCH (09:42)
[2020-11-26] MEDS ORDERED: PROMETHAZINE 25MG/ NS 50ML (IV) IV ONE (11:00)
[2020-11-26 12:38] LABS: HEMATOCRIT 32.2 % (34.2-44.1); HEMOGLOBIN 9.9 g/dL (12.0-16.0)
[2020-11-26] MEDS ORDERED: LIDOCAINE HCL 2% LOCAL INJ 5 ML SDV VIAL INJ ONE (12:40)
[2020-11-26] MEDS ORDERED: PROPOFOL IV EMULSION 10 MG/ML 20 ML VIAL ONE (12:40)
[2020-11-26] MEDS ORDERED: MIDAZOLAM HCL 2 MG/2 ML VIAL ONE (13:21)
[2020-11-26] MEDS ORDERED: FENTANYL CITRATE/PF 100MCG/2 ML INJ ONE (13:21)
[2020-11-26 19:03] LABS: HEMATOCRIT 31.6 % (34.2-44.1); HEMOGLOBIN 9.9 g/dL (12.0-16.0)
[2020-11-26] MEDS: ATORVASTATIN 40 MG TAB PO SCH (21:30)
[2020-11-26] MEDS: SUCRALFATE 1 GM/10 ML SUSP NG SCH (21:30)
[2020-11-27 04:00] VITALS: BP 133/56
[2020-11-27] MEDS: Pantoprazole IV 80 MG in SODIUM CHLORIDE 0.9% 100 ML IV SCH (04:45)
[2020-11-27 06:07] LABS: HEMOGLOBIN 9.4 g/dL (12.0-16.0)
[2020-11-27] MEDS: OCTREOTIDE ACETATE 500 MCG in SODIUM CHLORIDE 0.9% 250ML 249 ML IV SCH (06:20)
[2020-11-27] MEDS: OXYBUTYNIN CHLORIDE XL 5 MG TAB PO SCH (09:16)
[2020-11-27] MEDS: SUCRALFATE 1 GM/10 ML SUSP NG SCH ×4 (09:16→21:20)
[2020-11-27 09:18] VITALS: BP 133/56
[2020-11-27] MEDS: IRON SUCROSE 100 MG in SODIUM CHLORIDE 0.9% 100 ML 100 ML IV SCH (11:51)
[2020-11-27 16:22] VITALS: BP 137/61
[2020-11-27] MEDS: BALSAM PERU/CASTOR OIL 60 GM OINT...G. TP SCH (17:11)
[2020-11-27 20:00] VITALS: BP 134/58
[2020-11-27 21:00] VITALS: BP 137/61
[2020-11-27] MEDS: ATORVASTATIN 40 MG TAB PO SCH (21:20)
[2020-11-28] VITALS (8 sets, daily range): BP systolic 123–157; BP diastolic 50–65
[2020-11-28 05:39] LABS: BASOPHILS % 0.5 % (0.0-1.0); EOSINOPHILS # (AUTO) 0.7 (0.0-0.4); HEMATOCRIT 27.4 % (34.2-44.1); HEMOGLOBIN 8.6 g/dL (12.0-16.0); LYMPHOCYTES # (AUTO) 1.8 (1.0-3.2); LYMPHOCYTES % 28.3 % (18.0-39.1); MEAN CORPUSCULAR HEMOGLOBIN 28.9 pg (28-32); MEAN CORPUSCULAR HGB CONC 31.4 g/dL (31-35); MEAN CORPUSCULAR VOLUME 91.9 fL (81-99); MONOCYTES # (AUTO) 0.6 (0.2-0.8); NEUTROPHILS # (AUTO) 3.1 (2.1-6.9); NEUTROPHILS % 48.2 % (38.7-80.0); PLATELET COUNT 183 x10e3/uL (140-360); RED BLOOD COUNT 2.98 x10e6/uL (3.6-5.1); RED CELL DISTRIBUTION WIDTH 13.4 % (11.7-14.4)
[2020-11-28 06:02] LABS: ANION GAP 8.1 mmol/L (8-16); CALCIUM 8.3 mg/dL (8.4-10.2); CREATININE, SERUM 0.52 mg/dL (0.57-1.11); POTASSIUM 3.1 mmol/L (3.5-5.1)
[2020-11-28] MEDS: SUCRALFATE 1 GM/10 ML SUSP NG SCH ×4 (08:30→21:15)
[2020-11-28] MEDS: OXYBUTYNIN CHLORIDE XL 5 MG TAB PO SCH (09:00)
[2020-11-28] MEDS ORDERED: POTASSIUM CHLORIDE 10MEQ EA PO NR (09:15)
[2020-11-28] MEDS ORDERED: SODIUM CHLORIDE 0.9% 250ML 250 ML IV ONE (09:15)
[2020-11-28] MEDS ORDERED: FUROSEMIDE INJ 10 MG/ML 2 ML VIAL IV ONE (09:15)
[2020-11-28] MEDS: IRON SUCROSE 100 MG in SODIUM CHLORIDE 0.9% 100 ML 100 ML IV SCH (12:14)
[2020-11-28] MEDS ORDERED: SODIUM CHLORIDE 0.9% 250ML 250 ML ONE (13:42)
[2020-11-28] MEDS: BALSAM PERU/CASTOR OIL 60 GM OINT...G. TP SCH (21:15)
[2020-11-28] MEDS: ATORVASTATIN 40 MG TAB PO SCH (21:15)
[2020-11-29] VITALS (9 sets, daily range): BP systolic 139–171; BP diastolic 59–77
[2020-11-29] MEDS ORDERED: FUROSEMIDE INJ 10 MG/ML 2 ML VIAL IV ONE (02:30)
[2020-11-29] MEDS: ONDANSETRON HCL INJ 2MG/ML 2ML 2 MG/ML VIAL IV PRN (04:15)
[2020-11-29 04:56] LABS: BASOPHILS # (AUTO) 0.1 (0.0-0.1); BASOPHILS % 0.7 % (0.0-1.0); EOSINOPHILS # (AUTO) 0.5 (0.0-0.4); EOSINOPHILS % 6.8 % (0.0-6.0); LYMPHOCYTES # (AUTO) 1.9 (1.0-3.2); LYMPHOCYTES % 26.5 % (18.0-39.1); MEAN CORPUSCULAR HEMOGLOBIN 28.9 pg (28-32); MEAN CORPUSCULAR HGB CONC 32.4 g/dL (31-35); MEAN CORPUSCULAR VOLUME 89.5 fL (81-99); MONOCYTES # (AUTO) 0.7 (0.2-0.8); MONOCYTES % 10.1 % (4.4-11.3); NEUTROPHILS # (AUTO) 3.8 (2.1-6.9); NEUTROPHILS % 52.6 % (38.7-80.0); PLATELET COUNT 213 x10e3/uL (140-360); RED CELL DISTRIBUTION WIDTH 13.2 % (11.7-14.4)
[2020-11-29 05:16] LABS: ANION GAP 11.4 mmol/L (8-16); CREATININE, SERUM 0.6 mg/dL (0.57-1.11); POTASSIUM 3.4 mmol/L (3.5-5.1)
[2020-11-29] MEDS: OXYBUTYNIN CHLORIDE XL 5 MG TAB PO SCH (09:02)
[2020-11-29] MEDS: TRAMADOL/APAP 37.5MG-325MG TAB PO PRN (09:03)
[2020-11-29] MEDS: SUCRALFATE 1 GM/10 ML SUSP NG SCH ×4 (09:03→21:19)
[2020-11-29] MEDS ORDERED: POTASSIUM CHLORIDE 10MEQ EA PO ONE (11:00)
[2020-11-29] MEDS ORDERED: CYANOCOBALAMIN INJ 1,000 MCG/ML VIAL IM ONE (11:00)
[2020-11-29] MEDS: MAGNESIUM OXIDE 400 MG TAB PO SCH ×2 (11:52→16:29)
[2020-11-29] MEDS: IRON SUCROSE 100 MG in SODIUM CHLORIDE 0.9% 100 ML 100 ML IV SCH (11:52)
[2020-11-29] MEDS: ATORVASTATIN 40 MG TAB PO SCH (21:19)
[2020-11-29] MEDS: BALSAM PERU/CASTOR OIL 60 GM OINT...G. TP SCH (21:19)
[2020-11-30 00:13] VITALS: BP 153/88
[2020-11-30 04:41] VITALS: BP 161/83
[2020-11-30 07:51] VITALS: BP 155/71
[2020-11-30 08:04] VITALS: BP 155/71
[2020-11-30] MEDS: SUCRALFATE 1 GM/10 ML SUSP NG SCH (08:40)
[2020-11-30] MEDS: MAGNESIUM OXIDE 400 MG TAB PO SCH (08:40)
[2020-11-30] MEDS: OXYBUTYNIN CHLORIDE XL 5 MG TAB PO SCH (08:40)
[2020-11-30] MEDS: ONDANSETRON HCL INJ 2MG/ML 2ML 2 MG/ML VIAL IV PRN (08:41)
[2020-11-30] MEDS: TRAMADOL/APAP 37.5MG-325MG TAB PO PRN (08:41)
[2020-11-30] MEDS ORDERED: CHOLECALCIFEROL 1,000 UNIT TAB PO SCH (09:00)
[2020-11-30] MEDS ORDERED: ZINC SULFATE 220 MG CAP PO SCH (09:00)
[2020-11-30] MEDS ORDERED: CYANOCOBALAMIN 1,000 MCG TAB PO SCH (09:00)
[2020-11-30] MEDS ORDERED: OMEPRAZOLE40 MG PO (09:44)
[2020-11-30] MEDS ORDERED: CARAFATE1 GM/10 ML PO (09:45)
[2020-11-30] MEDS ORDERED: COLACE100 MG PO (09:46)
[2020-11-30] MEDS ORDERED: VITAMIN D310 MCG PO (09:49)
[2020-11-30] MEDS ORDERED: ZINC SULFATE50 M1 PO (09:50)
[2020-11-30] MEDS ORDERED: FERROUS SULFAT325 MG PO (09:51)
[2020-11-30 12:07] VITALS: BP 164/70
== END 2020-11-30 13:08 | disposition home or self-care (01) | DRG 377 ==
LOC: ER 17:04 → ERHOLD 11-25 01:51 → MED/SURG2 11-26 13:20
PROVIDERS: ADMIT Internal Medicine; ATTEND Internal Medicine
PROC: 02HV33Z Insertion of Infusion Device into Superior Vena Cava, Percutaneous Approach (ICD-10-PCS; 2020-11-24)
PROC: 30243N1 Transfusion of Nonautologous Red Blood Cells into Central Vein, Percutaneous Approach (ICD-10-PCS; 2020-11-24)
PROC: 0DB68ZX Excision of Stomach, Via Natural or Artificial Opening Endoscopic, Diagnostic (ICD-10-PCS; principal; 2020-11-27)
PROC: 0DB78ZX Excision of Stomach, Pylorus, Via Natural or Artificial Opening Endoscopic, Diagnostic (ICD-10-PCS; 2020-11-27)
DX: K25.4 Chronic or unspecified gastric ulcer with hemorrhage (principal); R57.8 Other shock; D62 Acute posthemorrhagic anemia; N17.9 Acute kidney failure, unspecified; K22.11 Ulcer of esophagus with bleeding; K29.70 Gastritis, unspecified, without bleeding; M16.0 Bilateral primary osteoarthritis of hip; M19.09 Primary osteoarthritis, other specified site; M47.9 Spondylosis, unspecified; I73.9 Peripheral vascular disease, unspecified; E87.6 Hypokalemia; E66.01 Morbid (severe) obesity due to excess calories; Z68.31 Body mass index [BMI] 31.0-31.9, adult
CPT/HCPCS: 36415; 36569; 43239; 51700; 71045; 74176; 80048; 80053; 81001; 82150; 82607; 82746; 82948; 83605; 83690; 85014; 85018; 85025; 85610; 85730; 86850; 86900; 86920; 87040; 88305; 88312; 93005; 99251; 99285; J0692; J1756; J1940; J2001; J2250; J2353; J2354; J2405; J2550; J3010; J3420; J7030; J7050; J7121; P9016; U0002

== ENCOUNTER 2020-12-05 11:15 | Inpatient (IN) | payer MEDICARE ==
[2020-12-05] VITALS: BP 103/52
[~2020-12-05] VITALS: Ht 157.5 cm; Wt 117.9 kg
[~2020-12-05 11:15] MED LIST changes: +CARAFATE1 GM/10 ML PO; +COLACE100 MG PO; +FERROUS SULFAT325 MG PO; +VITAMIN D310 MCG PO; +ZINC SULFATE50 M1 PO
[2020-12-05] MEDS ORDERED: SODIUM CHLORIDE 0.9% 1000ML 1,000 ML IV STA (11:47)
[2020-12-05 12:09] LABS: BASOPHILS % 0.4 % (0.0-1.0); EOSINOPHILS # (AUTO) 0.7 (0.0-0.4); EOSINOPHILS % 6.5 % (0.0-6.0); HEMOGLOBIN 11.8 g/dL (12.0-16.0); LYMPHOCYTES # (AUTO) 1.5 (1.0-3.2); LYMPHOCYTES % 13.5 % (18.0-39.1); MEAN CORPUSCULAR HEMOGLOBIN 29.1 pg (28-32); MEAN CORPUSCULAR HGB CONC 31.1 g/dL (31-35); MEAN CORPUSCULAR VOLUME 93.8 fL (81-99); MONOCYTES # (AUTO) 0.7 (0.2-0.8); MONOCYTES % 6.6 % (4.4-11.3); NEUTROPHILS % 72.5 % (38.7-80.0); PLATELET COUNT 260 x10e3/uL (140-360); RED BLOOD COUNT 4.05 x10e6/uL (3.6-5.1); RED CELL DISTRIBUTION WIDTH 14.4 % (11.7-14.4)
[2020-12-05 12:12] LABS: INR 0.97; PROTHROMBIN TIME 13.5 seconds (11.9-14.5)
[2020-12-05 12:13] LABS: PARTIAL THROMBOPLASTIN TIME 30.7 seconds (23.8-35.5)
[2020-12-05] MEDS: OCTREOTIDE ACETATE 0.05 MG/ML AMP IV STA ×2 (12:17→12:44)
[2020-12-05] MEDS: OCTREOTIDE ACETATE 500 MCG in SODIUM CHLORIDE 0.9% 250ML 249 ML IV SCH (12:17)
[2020-12-05 12:20] LABS: ALBUMIN 2.8 g/dL (3.5-5.0); ALBUMIN/GLOBULIN RATIO 0.8 (0.8-2.0); ANION GAP 14.3 mmol/L (8-16); CALCIUM 9.4 mg/dL (8.4-10.2); CREATININE, SERUM 0.67 mg/dL (0.57-1.11); POTASSIUM 3.3 mmol/L (3.5-5.1)
[2020-12-05 12:27] LABS: CREATINE KINASE MB 1.3 ng/mL (0-5.0)
[2020-12-05] MEDS ORDERED: FAMOTIDINE 20 MG/2 ML VIAL IV STA (13:52)
[2020-12-05] MEDS ORDERED: DIPHENHYDRAMINE HCL INJ 50 MG/ML VIAL IV ONE (14:00)
[2020-12-05] MEDS ORDERED: POTASSIUM CHLORIDE 20 MEQ TAB CR PO STA (14:38)
[2020-12-05] MEDS ORDERED: HYDRALAZINE HCL 20 MG/ML VIAL IV PRN (14:45)
[2020-12-05] MEDS ORDERED: POTASSIUM CHLORIDE 20 MEQ TAB CR PO PRN (14:45)
[2020-12-05] MEDS ORDERED: DIPHENHYDRAMINE HCL 25 MG CAP PO PRN (14:45)
[2020-12-05] MEDS ORDERED: MELATONIN 5 MG TABLET PO PRN (14:45)
[2020-12-05] MEDS ORDERED: DOCUSATE SODIUM 100 MG CAP PO PRN (14:45)
[2020-12-05] MEDS ORDERED: ALBUTEROL/IPRATROPIUM 3 ML NEB NEB PRN (14:45)
[2020-12-05] MEDS ORDERED: ACETAMINOPHEN 325 MG TAB PO PRN (14:45)
[2020-12-05] MEDS ORDERED: BENZONATATE 100 MG CAP PO PRN (14:45)
[2020-12-05] MEDS ORDERED: DEXTROSE 50% SYRINGE 50 ML IV PRN (14:45)
[2020-12-05] MEDS ORDERED: LIDOCAINE 4% PATCH TP PRN (14:45)
[2020-12-05] MEDS: SODIUM CHLORIDE 0.9% 1000ML 1,000 ML IV SCH (15:25)
[2020-12-05] MEDS ORDERED: SODIUM CHLORIDE 0.9% 50ML 50 ML ONE (15:40)
[2020-12-05] MEDS ORDERED: IOPAMIDOL 370 MG/ML 200 ML INFUS..BTL INJ ONE (15:41)
[2020-12-05 18:21] VITALS: BP 134/53
[2020-12-05 19:41] LABS: BASOPHILS # (AUTO) 0.1 (0.0-0.1); BASOPHILS % 0.4 % (0.0-1.0); EOSINOPHILS # (AUTO) 0.6 (0.0-0.4); EOSINOPHILS % 4.7 % (0.0-6.0); HEMATOCRIT 38.7 % (34.2-44.1); HEMOGLOBIN 12.1 g/dL (12.0-16.0); LYMPHOCYTES # (AUTO) 2.1 (1.0-3.2); LYMPHOCYTES % 17.3 % (18.0-39.1); MEAN CORPUSCULAR HEMOGLOBIN 29.4 pg (28-32); MEAN CORPUSCULAR HGB CONC 31.3 g/dL (31-35); MEAN CORPUSCULAR VOLUME 94.2 fL (81-99); MONOCYTES # (AUTO) 1.7 (0.2-0.8); MONOCYTES % 13.9 % (4.4-11.3); NEUTROPHILS # (AUTO) 7.7 (2.1-6.9); NEUTROPHILS % 63.1 % (38.7-80.0); PLATELET COUNT 236 x10e3/uL (140-360); RED BLOOD COUNT 4.11 x10e6/uL (3.6-5.1); RED CELL DISTRIBUTION WIDTH 14.3 % (11.7-14.4)
[2020-12-05 20:00] VITALS: BP 137/78
[2020-12-05 21:23] VITALS: BP 137/78
[2020-12-06] VITALS (8 sets, daily range): BP systolic 132–143; BP diastolic 71–82
[2020-12-06] MEDS ORDERED: SODIUM CHLORIDE 0.9% 250ML 250 ML ONE ×2 (02:09→02:18)
[2020-12-06 02:15] LABS: BASOPHILS % 0.4 % (0.0-1.0); EOSINOPHILS # (AUTO) 0.7 (0.0-0.4); EOSINOPHILS % 8.5 % (0.0-6.0); HEMOGLOBIN 10.2 g/dL (12.0-16.0); LYMPHOCYTES # (AUTO) 1.8 (1.0-3.2); LYMPHOCYTES % 23.1 % (18.0-39.1); MEAN CORPUSCULAR HEMOGLOBIN 28.7 pg (28-32); MEAN CORPUSCULAR HGB CONC 30.9 g/dL (31-35); MONOCYTES # (AUTO) 0.7 (0.2-0.8); MONOCYTES % 9.4 % (4.4-11.3); NEUTROPHILS # (AUTO) 4.5 (2.1-6.9); NEUTROPHILS % 58.2 % (38.7-80.0); PLATELET COUNT 236 x10e3/uL (140-360); RED BLOOD COUNT 3.55 x10e6/uL (3.6-5.1); RED CELL DISTRIBUTION WIDTH 14.3 % (11.7-14.4)
[2020-12-06] MEDS: OCTREOTIDE ACETATE 500 MCG in SODIUM CHLORIDE 0.9% 250ML 249 ML IV SCH ×3 (02:24→21:39)
[2020-12-06] MEDS: SODIUM CHLORIDE 0.9% 1000ML 1,000 ML IV SCH ×2 (02:25→15:16)
[2020-12-06] MEDS: Pantoprazole IV 40 MG in SODIUM CHLORIDE 0.9% 50ML 50 ML IV SCH ×4 (03:51→20:18)
[2020-12-06 06:15] LABS: BASOPHILS # (AUTO) 0.1 (0.0-0.1); BASOPHILS % 0.9 % (0.0-1.0); EOSINOPHILS # (AUTO) 0.7 (0.0-0.4); EOSINOPHILS % 9.6 % (0.0-6.0); HEMATOCRIT 31.8 % (34.2-44.1); LYMPHOCYTES # (AUTO) 1.8 (1.0-3.2); LYMPHOCYTES % 26.4 % (18.0-39.1); MEAN CORPUSCULAR HEMOGLOBIN 29.3 pg (28-32); MEAN CORPUSCULAR HGB CONC 31.4 g/dL (31-35); MEAN CORPUSCULAR VOLUME 93.3 fL (81-99); MONOCYTES # (AUTO) 0.6 (0.2-0.8); MONOCYTES % 9.3 % (4.4-11.3); NEUTROPHILS # (AUTO) 3.6 (2.1-6.9); NEUTROPHILS % 53.4 % (38.7-80.0); PLATELET COUNT 228 x10e3/uL (140-360); RED BLOOD COUNT 3.41 x10e6/uL (3.6-5.1); RED CELL DISTRIBUTION WIDTH 14.1 % (11.7-14.4)
[2020-12-06 06:40] LABS: ANION GAP 9.2 mmol/L (8-16); CALCIUM 8.3 mg/dL (8.4-10.2); CREATININE, SERUM 0.6 mg/dL (0.57-1.11); POTASSIUM 4.2 mmol/L (3.5-5.1)
[2020-12-06] MEDS: SUCRALFATE 1 GM TAB PO SCH ×4 (07:30→21:39)
[2020-12-06] MEDS ORDERED: PANTOPRAZOLE SOD 40 MG TABEC PO SCH (07:30)
[2020-12-06 12:44] LABS: BASOPHILS # (AUTO) 0.1 (0.0-0.1); BASOPHILS % 0.7 % (0.0-1.0); EOSINOPHILS # (AUTO) 0.9 (0.0-0.4); EOSINOPHILS % 12.3 % (0.0-6.0); HEMATOCRIT 32.7 % (34.2-44.1); HEMOGLOBIN 10.1 g/dL (12.0-16.0); LYMPHOCYTES # (AUTO) 1.9 (1.0-3.2); LYMPHOCYTES % 27.1 % (18.0-39.1); MEAN CORPUSCULAR HEMOGLOBIN 28.9 pg (28-32); MEAN CORPUSCULAR HGB CONC 30.9 g/dL (31-35); MEAN CORPUSCULAR VOLUME 93.7 fL (81-99); MONOCYTES # (AUTO) 0.7 (0.2-0.8); NEUTROPHILS # (AUTO) 3.5 (2.1-6.9); NEUTROPHILS % 49.5 % (38.7-80.0); PLATELET COUNT 237 x10e3/uL (140-360); RED BLOOD COUNT 3.49 x10e6/uL (3.6-5.1); RED CELL DISTRIBUTION WIDTH 14.1 % (11.7-14.4)
[2020-12-06 18:39] LABS: BASOPHILS # (AUTO) 0.1 (0.0-0.1); BASOPHILS % 0.6 % (0.0-1.0); EOSINOPHILS # (AUTO) 0.9 (0.0-0.4); EOSINOPHILS % 10.5 % (0.0-6.0); HEMATOCRIT 33.7 % (34.2-44.1); HEMOGLOBIN 10.5 g/dL (12.0-16.0); LYMPHOCYTES # (AUTO) 1.6 (1.0-3.2); LYMPHOCYTES % 19.9 % (18.0-39.1); MEAN CORPUSCULAR HEMOGLOBIN 29.2 pg (28-32); MEAN CORPUSCULAR HGB CONC 31.2 g/dL (31-35); MEAN CORPUSCULAR VOLUME 93.6 fL (81-99); MONOCYTES # (AUTO) 0.7 (0.2-0.8); MONOCYTES % 9.2 % (4.4-11.3); NEUTROPHILS # (AUTO) 4.8 (2.1-6.9); NEUTROPHILS % 59.4 % (38.7-80.0); PLATELET COUNT 245 x10e3/uL (140-360); RED CELL DISTRIBUTION WIDTH 13.8 % (11.7-14.4)
[2020-12-06] MEDS ORDERED: LISINOPRIL-HCT1 EACH PO (23:21)
[2020-12-06] MEDS ORDERED: TRAZODONE HCL150 MG PO (23:21)
[2020-12-06] MEDS ORDERED: HYDRALAZINE HCL25 MG PO (23:21)
[2020-12-06] MEDS ORDERED: VITAMIN C500 MG PO (23:28)
[2020-12-06] MEDS ORDERED: ATORVASTATIN CA80 MG PO (23:28)
[2020-12-06] MEDS ORDERED: MULTI-VITAMIN1 EACH PO (23:28)
[2020-12-06] MEDS ORDERED: ULTRAM50 MG PO (23:28)
[2020-12-06] MEDS ORDERED: BUSPIRONE HCL10 MG PO (23:28)
[2020-12-07] VITALS (9 sets, daily range): BP systolic 126–152; BP diastolic 68–87
[2020-12-07 01:27] LABS: BASOPHILS % 0.6 % (0.0-1.0); EOSINOPHILS # (AUTO) 0.6 (0.0-0.4); EOSINOPHILS % 10.1 % (0.0-6.0); HEMATOCRIT 28.4 % (34.2-44.1); LYMPHOCYTES # (AUTO) 1.4 (1.0-3.2); LYMPHOCYTES % 21.4 % (18.0-39.1); MEAN CORPUSCULAR HEMOGLOBIN 29.8 pg (28-32); MEAN CORPUSCULAR HGB CONC 31.7 g/dL (31-35); MONOCYTES # (AUTO) 0.7 (0.2-0.8); MONOCYTES % 10.2 % (4.4-11.3); NEUTROPHILS # (AUTO) 3.6 (2.1-6.9); NEUTROPHILS % 57.2 % (38.7-80.0); PLATELET COUNT 178 x10e3/uL (140-360); RED BLOOD COUNT 3.02 x10e6/uL (3.6-5.1); RED CELL DISTRIBUTION WIDTH 13.7 % (11.7-14.4)
[2020-12-07] MEDS: Pantoprazole IV 80 MG in SODIUM CHLORIDE 0.9% 100 ML IV SCH ×3 (02:33→22:50)
[2020-12-07 06:29] LABS: BASOPHILS # (AUTO) 0.1 (0.0-0.1); BASOPHILS % 0.7 % (0.0-1.0); EOSINOPHILS # (AUTO) 0.7 (0.0-0.4); EOSINOPHILS % 9.4 % (0.0-6.0); HEMATOCRIT 33.1 % (34.2-44.1); HEMOGLOBIN 10.4 g/dL (12.0-16.0); LYMPHOCYTES # (AUTO) 1.4 (1.0-3.2); LYMPHOCYTES % 19.9 % (18.0-39.1); MEAN CORPUSCULAR HEMOGLOBIN 29.4 pg (28-32); MEAN CORPUSCULAR HGB CONC 31.4 g/dL (31-35); MEAN CORPUSCULAR VOLUME 93.5 fL (81-99); MONOCYTES # (AUTO) 0.8 (0.2-0.8); MONOCYTES % 10.9 % (4.4-11.3); NEUTROPHILS # (AUTO) 4.2 (2.1-6.9); NEUTROPHILS % 58.7 % (38.7-80.0); PLATELET COUNT 208 x10e3/uL (140-360); RED BLOOD COUNT 3.54 x10e6/uL (3.6-5.1); RED CELL DISTRIBUTION WIDTH 13.6 % (11.7-14.4)
[2020-12-07] MEDS: OCTREOTIDE ACETATE 500 MCG in SODIUM CHLORIDE 0.9% 250ML 249 ML IV SCH ×2 (07:00→14:00)
[2020-12-07 07:07] LABS: ANION GAP 13.3 mmol/L (8-16); CALCIUM 8.5 mg/dL (8.4-10.2); CREATININE, SERUM 0.56 mg/dL (0.57-1.11); POTASSIUM 4.3 mmol/L (3.5-5.1)
[2020-12-07 07:13] LABS: PLATELET ESTIMATE ADEQUATE; PLATELET MORPHOLOGY COMMENT RARE EDTA CLUMPING; RBC MORPHOLOGY COMMENT NORMAL
[2020-12-07] MEDS: SUCRALFATE 1 GM TAB PO SCH ×4 (08:10→21:25)
[2020-12-08] VITALS (9 sets, daily range): BP systolic 138–160; BP diastolic 70–78
[2020-12-08] MEDS: OCTREOTIDE ACETATE 500 MCG in SODIUM CHLORIDE 0.9% 250ML 249 ML IV SCH (01:06)
[2020-12-08 05:47] LABS: BASOPHILS % 0.4 % (0.0-1.0); EOSINOPHILS # (AUTO) 0.6 (0.0-0.4); EOSINOPHILS % 8.3 % (0.0-6.0); HEMATOCRIT 32.6 % (34.2-44.1); HEMOGLOBIN 10.5 g/dL (12.0-16.0); LYMPHOCYTES # (AUTO) 1.6 (1.0-3.2); LYMPHOCYTES % 24.2 % (18.0-39.1); MEAN CORPUSCULAR HEMOGLOBIN 29.5 pg (28-32); MEAN CORPUSCULAR HGB CONC 32.2 g/dL (31-35); MEAN CORPUSCULAR VOLUME 91.6 fL (81-99); MONOCYTES # (AUTO) 0.9 (0.2-0.8); MONOCYTES % 13.3 % (4.4-11.3); NEUTROPHILS # (AUTO) 3.6 (2.1-6.9); NEUTROPHILS % 53.4 % (38.7-80.0); PLATELET COUNT 273 x10e3/uL (140-360); RED BLOOD COUNT 3.56 x10e6/uL (3.6-5.1); RED CELL DISTRIBUTION WIDTH 13.2 % (11.7-14.4)
[2020-12-08] MEDS: SUCRALFATE 1 GM TAB PO SCH ×4 (08:48→20:02)
[2020-12-08] MEDS: Pantoprazole IV 80 MG in SODIUM CHLORIDE 0.9% 100 ML IV SCH ×2 (08:48→19:43)
[2020-12-09] VITALS (8 sets, daily range): BP systolic 120–155; BP diastolic 64–83
[2020-12-09] MEDS: SIMETHICONE 80 MG CHEW PO PRN ×2 (00:28→21:27)
[2020-12-09] MEDS: ONDANSETRON HCL INJ 2MG/ML 2ML 2 MG/ML VIAL IV PRN (00:28)
[2020-12-09] MEDS ORDERED: BISACODYL 10 MG SUPP PR ONE (01:30)
[2020-12-09] MEDS: Pantoprazole IV 80 MG in SODIUM CHLORIDE 0.9% 100 ML IV SCH ×2 (06:20→14:30)
[2020-12-09] MEDS: SUCRALFATE 1 GM TAB PO SCH ×4 (08:29→21:25)
[2020-12-09] MEDS: GABAPENTIN 100 MG CAP PO SCH (21:25)
[2020-12-10 00:21] VITALS: BP 129/70
[2020-12-10] MEDS: Pantoprazole IV 80 MG in SODIUM CHLORIDE 0.9% 100 ML IV SCH ×2 (01:36→09:32)
[2020-12-10 05:07] VITALS: BP 120/75
[2020-12-10] MEDS: ONDANSETRON HCL INJ 2MG/ML 2ML 2 MG/ML VIAL IV PRN (08:12)
[2020-12-10 08:34] VITALS: BP 120/67
[2020-12-10 08:36] VITALS: BP 120/67
[2020-12-10] MEDS: SUCRALFATE 1 GM TAB PO SCH ×3 (09:32→17:13)
[2020-12-10] MEDS: GABAPENTIN 100 MG CAP PO SCH ×2 (09:32→15:39)
[2020-12-10 12:08] VITALS: BP 129/61
[2020-12-10 16:48] VITALS: BP 154/87
== END 2020-12-10 18:03 | disposition home or self-care (01) | DRG 377 ==
LOC: ER 11:45 → ERHOLD 13:56 → MED/SURG3 17:57 → OBSVTOIN 12-07 14:53
PROVIDERS: ADMIT Internal Medicine; ATTEND Internal Medicine
DX: K25.4 Chronic or unspecified gastric ulcer with hemorrhage (principal); K20.91 Esophagitis, unspecified with bleeding; N13.30 Unspecified hydronephrosis; E78.5 Hyperlipidemia, unspecified; K29.71 Gastritis, unspecified, with bleeding; R32 Unspecified urinary incontinence; I10 Essential (primary) hypertension; G62.9 Polyneuropathy, unspecified; M19.90 Unspecified osteoarthritis, unspecified site; Z20.822 Contact with and (suspected) exposure to COVID-19
CPT/HCPCS: 36415; 74177; 80048; 80053; 82270; 82550; 82553; 82948; 84484; 85025; 85610; 85730; 86850; 86870; 86880; 86900; 86905; 93005; 96361; 96365; 96366; 96376; 97139; 99001; 99251; 99284; G0378; J1200; J2353; J2354; J2405; J7030; J7050; Q9967; U0002

== ENCOUNTER 2020-12-15 10:53 | Emergency (ER) | payer MEDICARE ==
[~2020-12-15] VITALS: Ht 157.5 cm; Wt 117.9 kg
[~2020-12-15 10:53] MED LIST changes: +ATORVASTATIN CA80 MG PO; +BUSPIRONE HCL10 MG PO; +HYDRALAZINE HCL25 MG PO; +LISINOPRIL-HCT1 EACH PO; +MULTI-VITAMIN1 EACH PO; +TRAZODONE HCL150 MG PO; +ULTRAM50 MG PO; +VITAMIN C500 MG PO
[2020-12-15 11:47] LABS: BASOPHILS % 0.5 % (0.0-1.0); EOSINOPHILS # (AUTO) 0.4 (0.0-0.4); EOSINOPHILS % 5.8 % (0.0-6.0); HEMATOCRIT 34.4 % (34.2-44.1); HEMOGLOBIN 10.5 g/dL (12.0-16.0); LYMPHOCYTES # (AUTO) 1.1 (1.0-3.2); LYMPHOCYTES % 14.6 % (18.0-39.1); MEAN CORPUSCULAR HEMOGLOBIN 28.6 pg (28-32); MEAN CORPUSCULAR HGB CONC 30.5 g/dL (31-35); MEAN CORPUSCULAR VOLUME 93.7 fL (81-99); MONOCYTES # (AUTO) 0.7 (0.2-0.8); MONOCYTES % 8.6 % (4.4-11.3); NEUTROPHILS # (AUTO) 5.2 (2.1-6.9); NEUTROPHILS % 69.7 % (38.7-80.0); PLATELET COUNT 324 x10e3/uL (140-360); RED BLOOD COUNT 3.67 x10e6/uL (3.6-5.1); RED CELL DISTRIBUTION WIDTH 13.7 % (11.7-14.4)
[2020-12-15 11:59] LABS: INR 0.91; PROTHROMBIN TIME 12.5 seconds (11.9-14.5)
[2020-12-15 12:08] LABS: ALBUMIN 2.2 g/dL (3.5-5.0); ALBUMIN/GLOBULIN RATIO 0.6 (0.8-2.0); ANION GAP 12.5 mmol/L (8-16); CALCIUM 9.3 mg/dL (8.4-10.2); CREATININE, SERUM 0.64 mg/dL (0.57-1.11); POTASSIUM 3.5 mmol/L (3.5-5.1)
[2020-12-15 13:05] LABS: COLOR,URINE YELLOW (YELLOW)
[2020-12-15 13:06] LABS: BACTERIA,URINE MANY /HPF; CLARITY,URINE TURBID (CLEAR); EPITHELIAL CELLS,URINE FEW /LPF; KETONES,URINE NEGATIVE (NEGATIVE); LEUKOCYTE ESTERASE ,URINE LARGE (NEGATIVE); NITRITE,URINE POSITIVE (NEGATIVE); PROTEIN,URINE DIPSTICK 2+ (NEGATIVE); URINE UROBILINOGEN 0.2 mg/dL (0.2 - 1); WBC,URINE (MAN) >50 /HPF (0-5)
== END 2020-12-15 15:26 | disposition home or self-care (01) ==
LOC: ER 10:58
DX: K92.2 Gastrointestinal hemorrhage, unspecified (principal); I10 Essential (primary) hypertension; E78.5 Hyperlipidemia, unspecified; K21.9 Gastro-esophageal reflux disease without esophagitis; M54.9 Dorsalgia, unspecified; G89.29 Other chronic pain
CPT/HCPCS: 36415; 80053; 81001; 85025; 85610; 99284

== ENCOUNTER 2021-01-02 15:32 | Emergency (ER) | payer MEDICARE ==
[~2021-01-02] VITALS: Ht 157.5 cm; Wt 117.9 kg
[2021-01-02 16:13] LABS: BASOPHILS % 0.5 % (0.0-1.0); EOSINOPHILS # (AUTO) 0.1 (0.0-0.4); HEMATOCRIT 36.9 % (34.2-44.1); HEMOGLOBIN 11.4 g/dL (12.0-16.0); LYMPHOCYTES # (AUTO) 1.5 (1.0-3.2); LYMPHOCYTES % 23.3 % (18.0-39.1); MEAN CORPUSCULAR HEMOGLOBIN 28.5 pg (28-32); MEAN CORPUSCULAR HGB CONC 30.9 g/dL (31-35); MEAN CORPUSCULAR VOLUME 92.3 fL (81-99); MONOCYTES # (AUTO) 0.7 (0.2-0.8); MONOCYTES % 10.4 % (4.4-11.3); NEUTROPHILS # (AUTO) 4.2 (2.1-6.9); NEUTROPHILS % 63.2 % (38.7-80.0); PLATELET COUNT 285 x10e3/uL (140-360); RED CELL DISTRIBUTION WIDTH 14.2 % (11.7-14.4)
[2021-01-02 16:33] LABS: ALBUMIN 2.7 g/dL (3.5-5.0); ALBUMIN/GLOBULIN RATIO 0.7 (0.8-2.0); ANION GAP 14.3 mmol/L (8-16); CALCIUM 9.6 mg/dL (8.4-10.2); CREATININE, SERUM 0.7 mg/dL (0.57-1.11); POTASSIUM 3.3 mmol/L (3.5-5.1)
== END 2021-01-02 19:35 | disposition home or self-care (01) ==
LOC: ER 15:38
DX: K25.4 Chronic or unspecified gastric ulcer with hemorrhage (principal); Z88.1 Allergy status to other antibiotic agents; Z88.5 Allergy status to narcotic agent; Z88.0 Allergy status to penicillin; Z88.8 Allergy status to other drugs, medicaments and biological substances
CPT/HCPCS: 36415; 80053; 85025; 99284; C9113